=== PATIENT | female | born 1975 | race African-American/Black ===

== ENCOUNTER 2019-09-08 11:00 | Day surgery (SDC) | payer BC, SELFPAY ==
[~2019-09-08] VITALS: Ht 167.6 cm; Wt 108.9 kg
[2019-09-08 12:43] LABS: BASOPHILS # (AUTO) 0.1 K/uL (0.0-0.2); BASOPHILS % (AUTO) 1.6 % (0.0-2.0); EOSINOPHILS # (AUTO) 0.1 K/uL (0.0-0.4); EOSINOPHILS % (AUTO) 2.1 % (0.0-4.0); HEMATOCRIT 28.9 % (36-48); LYMPHOCYTES # (AUTO) 1.7 K/uL (1.0-5.5); LYMPHOCYTES % (AUTO) 29.2 % (20.5-51.5); MEAN CORPUSCULAR HEMOGLOBIN 23 pg (27-31); MEAN CORPUSCULAR HGB CONC 31 % (32-36); MEAN CORPUSCULAR VOLUME 75 fL (79.0-98.0); MONOCYTES # (AUTO) 0.5 K/uL (0.0-1.0); MONOCYTES % (AUTO) 9.6 % (1.7-9.3); NEUTROPHILS # (AUTO) 3.3 K/uL (1.8-7.7); NEUTROPHILS % (AUTO) 57.5 % (40.0-70.0); PLATELET COUNT (AUTO) 423 K/uL (130-430); RED BLOOD CELL COUNT(AUTO) 3.84 MIL/uL (4.2-6.2); RED CELL DISTRIBUTION WIDTH 19.5 % (9.0-15.0); WHITE BLOOD COUNT (AUTO) 5.7 K/uL (4.8-10.8)
[2019-09-08] MEDS ORDERED: fentaNYL CITRATE/PF 100 MCG/2 ML AMP IVP PRN ×2 (13:15)
[2019-09-08] MEDS ORDERED: ONDANSETRON HCL 4 MG/2 ML VIAL IVP PRN (13:15)
[2019-09-08] MEDS ORDERED: MIDAZOLAM HCL 5 MG/5 ML VIAL IVP ONE (13:36)
[2019-09-08] MEDS ORDERED: NS 1000 ML IV.SOLN IV ONE (13:36)
[2019-09-08] MEDS ORDERED: NS IRRIG SOLN 1000 ML IR ONE (13:36)
[2019-09-08] MEDS ORDERED: LR 1,000 ML IV.SOLN IV ONE (13:36)
[2019-09-08] MEDS ORDERED: fentaNYL CITRATE/PF 100 MCG/2 ML AMP IVP ONE (13:36)
[2019-09-08] MEDS ORDERED: PROPOFOL 200MG/ 20ML VIAL (DIPRIVAN) IV ONE (13:36)
[2019-09-08] MEDS ORDERED: SEVOFLURANE 15 MIN GAS INH ONE (13:36)
[2019-09-08 15:26] VITALS: BP_SYST 122
== END 2019-09-08 16:40 | disposition home or self-care (01) ==
LOC: SMU 11:00 → SDS 11:00
PROVIDERS: ATTEND Obstetrics & Gynecology
DX: N92.0 Excessive and frequent menstruation with regular cycle (principal); D25.1 Intramural leiomyoma of uterus
CPT/HCPCS: 36415; 58563; 85025; J2250; J2704; J3010; J7030; J7120; U0002

== ENCOUNTER 2019-10-29 06:01 | Inpatient (IN) | payer BC, SELFPAY ==
[~2019-10-29] VITALS: Ht 165.1 cm; Wt 104.3 kg
[2019-10-29 06:34] LABS: HCG,QUAL RESULT NEGATIVE (NEGATIVE)
[2019-10-29 06:44] LABS: BASOPHILS # (AUTO) 0.1 K/uL (0.0-0.2); BASOPHILS % (AUTO) 1.5 % (0.0-2.0); EOSINOPHILS # (AUTO) 0.1 K/uL (0.0-0.4); EOSINOPHILS % (AUTO) 1.6 % (0.0-4.0); HEMATOCRIT 28.3 % (36-48); HEMOGLOBIN 8.6 g/dL (12.0-16.0); LYMPHOCYTES # (AUTO) 1.5 K/uL (1.0-5.5); LYMPHOCYTES % (AUTO) 30.5 % (20.5-51.5); MEAN CORPUSCULAR HEMOGLOBIN 21 pg (27-31); MEAN CORPUSCULAR HGB CONC 30 % (32-36); MEAN CORPUSCULAR VOLUME 70 fL (79.0-98.0); MONOCYTES # (AUTO) 0.4 K/uL (0.0-1.0); MONOCYTES % (AUTO) 8.6 % (1.7-9.3); NEUTROPHILS # (AUTO) 2.8 K/uL (1.8-7.7); NEUTROPHILS % (AUTO) 57.8 % (40.0-70.0); PLATELET COUNT (AUTO) 450 K/uL (130-430); RED BLOOD CELL COUNT(AUTO) 4.05 MIL/uL (4.2-6.2); RED CELL DISTRIBUTION WIDTH 20.5 % (9.0-15.0); WHITE BLOOD COUNT (AUTO) 4.9 K/uL (4.8-10.8)
[2019-10-29] MEDS ORDERED: fentaNYL CITRATE/PF 100 MCG/2 ML AMP IVP PRN ×2 (08:30)
[2019-10-29] MEDS ORDERED: ONDANSETRON HCL 4 MG/2 ML VIAL IVP PRN (08:30)
[2019-10-29] MEDS ORDERED: LR 1,000 ML IV SCH (09:19)
[2019-10-29] MEDS ORDERED: HYDROmorphone 2 MG TAB PO PRN (09:30)
[2019-10-29] MEDS ORDERED: HYDROcodone/ACETAMIN 5-325 MG TAB (NORCO/ VICODIN) PO PRN (09:30)
[2019-10-29] MEDS ORDERED: KETOROLAC TROMETHAMINE 30 MG VIAL IVP PRN (09:30)
[2019-10-29] MEDS ORDERED: IBUPROFEN 800 MG TABLET PO PRN (09:30)
[2019-10-29] MEDS ORDERED: OXYCODONE/ACETAMINOPHEN 5-325 TABLET PO PRN (09:30)
[2019-10-29] MEDS ORDERED: LR 1,000 ML IV.SOLN IV ONE (09:35)
[2019-10-29] MEDS ORDERED: NS IRRIG SOLN 1000 ML IR ONE (09:35)
[2019-10-29] MEDS ORDERED: MEPERIDINE HCL/PF 25 MG/ML DISP.SYRIN ONE (09:35)
[2019-10-29] MEDS ORDERED: ROCURONIUM BROMIDE 10 MG/ML (ZEMURON) ONE (09:35)
[2019-10-29] MEDS ORDERED: GLYCOPYRROLATE 0.2 MG/ML VIAL ONE (09:35)
[2019-10-29] MEDS ORDERED: PROPOFOL 200MG/ 20ML VIAL (DIPRIVAN) IV ONE (09:35)
[2019-10-29] MEDS ORDERED: MIDAZOLAM HCL 5 MG/ML VIAL (VERSED) IV ONE (09:35)
[2019-10-29] MEDS ORDERED: SEVOFLURANE 15 MIN GAS INH ONE (09:35)
[2019-10-29] MEDS ORDERED: BUPIVACAINE /EPINEPHRINE/PF 0.5% 30 ML VIAL INJ ONE (09:35)
[2019-10-29] MEDS ORDERED: ONDANSETRON HCL 4 MG/2 ML VIAL ONE (09:35)
[2019-10-29] MEDS ORDERED: NEOSTIGMINE METHYLSULFATE 1 MG/ML, 10 ML VIAL ONE (09:35)
[2019-10-29] MEDS ORDERED: CEFAZOLIN 2 GM IVPB PREMIX 50 ML IV ONE (09:35)
[2019-10-29] MEDS ORDERED: fentaNYL CITRATE/PF 100 MCG/2 ML AMP ONE ×2 (09:35→10:30)
--- NOTE | 2019-10-29 11:10 | NUR ---
POST OP ADMISSION NOTES: PATIENT RECEIVED FROM PACU VIA [facility]. S/P OPEN SUPRACERVICAL ABDOMINAL HYSTERECTOMY,ATTEMPTED LAP.PATIENT DROWSY,BUT ABLE TO ANSWER QUESTIONS. IV FLUID RUNNING AT LEFT WRIST INTACT.WITH SMALL INCISION X2 AT UMBILICAL AREA AND LEFT QUADRANT AREA.LOWER ABDOMINAL INCISION,SURGICAL DRESSING ON ,WITH ABDOMINAL BINDER ON. POST OP VITAL SIGNS TAKEN,AFEBRILE.STABLE. GUILLEN DRAINING TO YELLOW URINE.PATIENT WENT BACK TO SLEEP. NO DISTRESS.
[2019-10-29 11:57] VITALS: BP_SYST 125
--- NOTE | 2019-10-29 13:00 | NUR ---
RN ROUNDS: PATIENT SLEEPING AND VITAL SIGNS ARE STABLE. AFEBRILE. NOT IN ANY DISTRESS.
--- NOTE | 2019-10-29 14:00 | NUR ---
MEAL: STARTED ON REGULAR AND WELL TOLERATED BY THE PATIENT.NO NAUSEA/VOMITING NOTED.
[2019-10-29] MEDS: OXYCODONE/ACETAMINOPHEN 5-325 TABLET PO PRN ×3 (14:08→22:30)
--- NOTE | 2019-10-29 16:00 | NUR ---
VITAL SIGNS: VITAL SIGNS TAKEN,AFEBRILE AND STABLE.POST OP VITALS COMPLETED.
[2019-10-29 17:15] VITALS: BP_SYST 110
--- NOTE | 2019-10-29 18:30 | NUR ---
CLOSING NOTES: PATIENT SLEEPING DURING ROUNDS. MID ABD INCISION DRESSING INTACT WITH ABDOMINAL BINDER ON. GUILLEN DRAINING TO YELLOW URINE. CALL LIGHT WITH IN REACH. BED LOCKED AT LOWEST POSITION. NO ACUTE DISTRESS.
--- NOTE | 2019-10-29 19:25 | NUR ---
OPENING NOTE PATIENT AWAKE, AOX4. NO SIGNS OF RESPIRATORY DISTRESS AND DISCOMFORT NOTED. BREATHING EVEN AND UNLABORED. ON ROOM AIR TOLERATING WELL, O2 SATURATION OF 100%. DENIES PAIN AND DISCOMFORT AT THIS TIME. IVF SITE, PATENCY NOTED. GUILLEN CATHETER, ATTACHED AND SECURED, DRAINING BY GRAVITY. ABDOMINAL BINDER NOTED, ATTACHED AND SECURED. SCD'S OPERATING WELL. CALL LIGHT WITHIN REACH, PATIENT WAS EDUCATED TO USE CALL LIGHT WHEN ASSISTANCE IS NEEDED, PATIENT VERBALIZED UNDERSTANDING. BED LOCKED AND IN LOWEST POSITION. BED ALARM ON. SAFETY PRECAUTIONS IN PLACE. WILL CONTINUE TO MONITOR PATIENT.
[2019-10-29 20:00] VITALS: BP_SYST 116
[2019-10-29] MEDS ORDERED: TEMAZEPAM 15 MG CAPSULE PO PRN (21:00)
--- NOTE | 2019-10-29 22:30 | NUR ---
PAIN PATIENT VERBALIZED 6/10 ABDOMINAL PAIN, PRN PAIN MEDICATION GIVEN AT THIS TIME. NO SIGNS OF RESPIRATORY DISTRESS NOTED. CALL LIGHT WITHIN REACH. SAFETY PRECAUTIONS IN PLACE. WILL CONTINUE TO MONITOR AND RE ASSESS PATIENT.
--- NOTE | 2019-10-30 | NUR ---
RN ROUNDS PATIENT ASLEEP AT THIS TIME. NO SIGNS OF RESPIRATORY DISTRESS AND DISCOMFORT NOTED. BREATHING EVEN AND UNLABORED. ON ROOM AIR TOLERATING WELL. CALL LIGHT WITHIN REACH. SAFETY PRECAUTIONS IN PLACE. WILL CONTINUE TO MONITOR PATIENT.
[2019-10-30 00:15] VITALS: BP_SYST 126
[2019-10-30] MEDS: OXYCODONE/ACETAMINOPHEN 5-325 TABLET PO PRN (05:11)
--- NOTE | 2019-10-30 06:36 | NUR ---
CLOSING NOTE PATIENT ASLEEP AT THIS TIME. NO SIGNS OF RESPIRATORY DISTRESS AND DISCOMFORT NOTED. BREATHING EVEN AND UNLABORED. ON ROOM AIR TOLERATING WELL. HOB SLIGHTLY RAISED. GUILLEN CATHETER ATTACHED AND SECURED, DRAINING BY GRAVITY. IV SITE, PATENCY NOTED. SCD'S OPERATING WELL. CALL LIGHT WITHIN REACH. BED LOCKED AND IN LOWEST POSITION. SAFETY PRECAUTIONS IN PLACE. ALL NEEDS MET THROUGHOUT THE SHIFT. WILL CONTINUE TO MONITOR UNTIL ENDORSE TO ONCOMING SHIFT NURSE FOR CONTINUITY OF CARE.
--- NOTE | 2019-10-30 06:50 | NUR ---
Nutrition Update Manuel Scale 17 noted. Pt admitted for Excessive and Frequent Menstruation Diet: Regular BMI: 38.3 kg/m2 RD to follow per nutrition care standards.
[2019-10-30 07:58] VITALS: BP_SYST 127
--- NOTE | 2019-10-30 08:05 | NUR ---
INITIAL ROUNDS Received pt AAOx4, no s/s resp distress, c/o pain 10/29 to lower abd-pt given Percocet as ordered for 10/29 pain. Pt repositioned for comfort and skin care. Noted Titus draining to gravity with yellow urine. Dr. Suarez here-saw pt, order given to D/C titus and get pt out of bed today. Plan of care for the day reviewed with pt-pt verbalized her understanding. Pt educated on and encouraged to use her Incentive Spirometer-pt verbalized her understanding. Pain management, skin and safety discussed-teach back done. Call light within reach. Addendum: 10/30/19 at 0933 by Kanchan Jc RN Noted pt with abd binder in place over low abd dressing clean, dry and intact.
--- NOTE | 2019-10-30 11:35 | NUR ---
AMBULATION Pt slowly ambulated to the bathroom with assist of two nurses. No c/o lightheadedness, no c/o pain. Pt just stated she felt pressure on her lower abd. No bowel movement done.
[2019-10-30 12:02] LABS: BASOPHILS % (AUTO) 0.6 % (0.0-2.0); EOSINOPHILS # (AUTO) 0.1 K/uL (0.0-0.4); EOSINOPHILS % (AUTO) 0.9 % (0.0-4.0); HEMATOCRIT 28.5 % (36-48); HEMOGLOBIN 8.4 g/dL (12.0-16.0); LYMPHOCYTES # (AUTO) 1.5 K/uL (1.0-5.5); LYMPHOCYTES % (AUTO) 21.8 % (20.5-51.5); MEAN CORPUSCULAR HEMOGLOBIN 21 pg (27-31); MEAN CORPUSCULAR HGB CONC 30 % (32-36); MEAN CORPUSCULAR VOLUME 71 fL (79.0-98.0); MONOCYTES # (AUTO) 0.6 K/uL (0.0-1.0); MONOCYTES % (AUTO) 8.7 % (1.7-9.3); NEUTROPHILS # (AUTO) 4.6 K/uL (1.8-7.7); PLATELET COUNT (AUTO) 368 K/uL (130-430); RED BLOOD CELL COUNT(AUTO) 4.02 MIL/uL (4.2-6.2); RED CELL DISTRIBUTION WIDTH 21.3 % (9.0-15.0); WHITE BLOOD COUNT (AUTO) 6.7 K/uL (4.8-10.8)
[2019-10-30 12:34] VITALS: BP_SYST 121
[2019-10-30] MEDS: ONDANSETRON HCL 4 MG/2 ML VIAL IVP PRN ×2 (13:34→17:24)
--- NOTE | 2019-10-30 14:35 | NUR ---
AMBULATION Pt slowly ambulated to the bathroom with assist of two nurses. No c/o lightheadedness, no c/o pain. Pt just stated she felt pressure on her lower abd. No bowel movement done. Noted pt belched a few times. Call light within reach.
[2019-10-30 16:33] VITALS: BP_SYST 123
--- NOTE | 2019-10-30 17:49 | NUR ---
NAUSEA Pt c/o nausea, pt given emesis bag and vomited small amount of fluid. Pt given Zofran as ordered. Ice pack placed to pt's forehead, light turned down low to promote rest.
--- NOTE | 2019-10-30 17:55 | NUR ---
WILMER TAVARES'Rubi Valencia discontinued, pt tolerated well. Pt instructed to call nursing for assist out of bed for safety.
--- NOTE | 2019-10-30 19:00 | NUR ---
CLOSING NOTE Pt resting quietly in bed with no s/s resp distress, no further c/o pain or discomfort. Pt has not voided yet. Abd dressing clean, dry and intact with abd binder in place. Needs met, call light within reach.
--- NOTE | 2019-10-30 19:15 | NUR ---
OPENING NOTE/ DANGLED FEET AT BEDSIDE PATIENT AWAKE, DANGLED FEET AT BEDSIDE. AOX4. NO SIGNS OF RESPIRATORY DISTRESS AND DISCOMFORT NOTED. BREATHING EVEN AND UNLABORED. ON ROOM AIR TOLERATING WELL, O2 SATURATION OF 100%. DENIES PAIN AND DISCOMFORT AT THIS TIME. IVF SITE, PATENCY NOTED. ABDOMINAL BINDER NOTED, ATTACHED AND SECURED. SCD'S OPERATING WELL. CALL LIGHT WITHIN REACH, PATIENT WAS EDUCATED TO USE CALL LIGHT WHEN ASSISTANCE IS NEEDED, PATIENT VERBALIZED UNDERSTANDING. BED LOCKED AND IN LOWEST POSITION. BED ALARM ON. SAFETY PRECAUTIONS IN PLACE. WILL CONTINUE TO MONITOR PATIENT.
[2019-10-30 20:00] VITALS: BP_SYST 125
[2019-10-31] VITALS: BP_SYST 111
--- NOTE | 2019-10-31 02:00 | NUR ---
RN ROUNDS/ PATIENT AMBULATE PATIENT ASSISTED TO BATHROOM AND ASSISTED SAFELY BACK TO BAD. PATIENT VERBALIZED FEELING TO BURP AND DISCOMFORT IN THE ABDOMEN, BUT DENIES PAIN. PATIENT WAS EDUCATED THE PURPOSE AND BENEFITS OF AMBULATING. PATIENT ABLE TO VERBALIZED UNDERSTANDING. REFUSED ANY MEDICATION AT THIS TIME. PATIENT HAS NO SIGNS OF RESPIRATORY DISTRESS NOTED. CALL LIGHT WITHIN REACH. SAFETY PRECAUTIONS IN PLACE. WILL CONTINUE TO MONITOR PATIENT.
[2019-10-31] MEDS: ONDANSETRON HCL 4 MG/2 ML VIAL IVP PRN (03:53)
--- NOTE | 2019-10-31 03:53 | NUR ---
ZOFRAN PATIENT COMPLAINTS OF NAUSEA. PATIENT VOMITED. ZOFRAN GIVEN AT THIS TIME. PATIENT WAS EDUCATED ON MEDICATION FOR ITS PURPOSE, SIDE EFFECT AND BENEFIT. PATIENT ABLE TO VERBALIZED UNDERSTANDING. PATIENT VERBALIZED FEELING BETTER AFTER VOMITING. NO SIGNS OF RESPIRATORY DISTRESS NOTED. NEEDS ATTENDED. CALL LIGHT WITHIN REACH. SAFETY PRECAUTIONS IN PLACE. WILL CONTINUE TO MONITOR PATIENT.
--- NOTE | 2019-10-31 06:52 | NUR ---
CLOSING NOTE PATIENT AWAKE, SITTING UP IN BED AT THIS TIME. NO SIGNS OF RESPIRATORY DISTRESS AND DISCOMFORT NOTED. BREATHING EVEN AND UNLABORED. ON ROOM AIR TOLERATING WELL. HOB SLIGHTLY RAISED. DENIES NAUSEA AT THIS TIME. IV SITE, PATENCY NOTED. SCD'S OPERATING WELL. CALL LIGHT WITHIN REACH. BED LOCKED AND IN LOWEST POSITION. SAFETY PRECAUTIONS IN PLACE. ALL NEEDS MET THROUGHOUT THE SHIFT. WILL CONTINUE TO MONITOR UNTIL ENDORSE TO ONCOMING SHIFT NURSE FOR CONTINUITY OF CARE.
--- NOTE | 2019-10-31 08:00 | NUR ---
Patient is awake and alert, sitting up in bed. Patient is not in any pain or any kind of distress at this time. Patient states she is not nauseous but does want something for constipation. I will page to ask for a suppository and DC orders. Her IV access is patent and intact. Patient is able to ambulate on her own, she was advised to move more today. I got a full report from the chemical operations specialist nurse. Bed is low, locked, 2 side rails up and call light is within reach. Mora LOCO
[2019-10-31] MEDS ORDERED: BISACODYL 10 MG/SUPPOSITORY RC PRN (09:45)
--- NOTE | 2019-10-31 10:07 | NUR ---
Patient was given suppository and helped to ambulate. She was encouraged to drink more fluids. She is not in any kind of distress at this time. Bed is low, locked, 2 side rails up and call light is within reach. Mora LOCO
[2019-10-31 11:40] VITALS: BP_SYST 140
--- NOTE | 2019-10-31 12:09 | NUR ---
Patient is drinking her fluids, she states she passed gas and feels much better. She is ambulating more and states she feels much better and no pain. DC will begin. Bed is low, locked, 2 side rails up and call light is within reach. Mora LOCO
[2019-10-31 13:13] VITALS: BP_SYST 137
--- NOTE | 2019-10-31 13:46 | NUR ---
Patient educated on d/c instruction, RX was given, IV was discontinued, she is ambulating well and passing gas. is aware that patient is leaving. All her questions were answered and patient verbalized comprehension. Bed is low, locked, 2 side rails up and call light is within reach. Mora LOCO
[2019-10-31 13:47] VITALS: BP_SYST 136
== END 2019-10-31 13:46 | disposition home or self-care (01) | DRG 743 ==
LOC: SDS 06:01 → SMU 06:02 → SDS 11:07
PROVIDERS: ADMIT Obstetrics & Gynecology; ATTEND Obstetrics & Gynecology
PROC: 0UT94ZL Resection of Uterus, Supracervical, Percutaneous Endoscopic Approach (ICD-10-PCS; principal; 2019-10-29 07:30)
DX: D25.9 Leiomyoma of uterus, unspecified (principal); Z03.818 Encounter for observation for suspected exposure to other biological agents ruled out
CPT/HCPCS: 36415; 84703; 85025; 87081; 88307; C1727; E0190; J0690; J1885; J2175; J2250; J2405; J2704; J2710; J3010; J3490; J7120; U0003-CS